=== PATIENT | male | born 1975 | race Caucasian/White ===

== ENCOUNTER 2016-06-01 16:49 | Emergency (ER) | payer OTHER ==
[~2016-06-01] VITALS: Ht 172.7 cm; Wt 158.8 kg
[~2016-06-01 16:49] MED LIST: AMOXIL 875 MG875 MG PO; BENZONATATE200 MG PO; CHERATUSSIN AC120 ML PO; HYDROCODONE/ACE1 TA1 PO; MEDROL DOSEPAK1 PAC PO; MOTRIN800 MG PO; PROVENTIL0.09 MG/A1 INH; TESSALON PERLE100 MG PO
--- NOTE | 2016-06-01 17:16 | ED UPPER/LOWER EXTREMITY COMPL ---
History of Present Illness General Chief Complaint: Foot or Ankle Injury Stated Complaint: INJURY TO R ANKLE Source: patient Exam Limitations: no limitations Vital Signs & Intake/Output Vital Signs & Intake/Output Vital Signs Date Time Temp Pulse Resp B/P Pulse O2 O2 Flow FiO2 Ox Delivery Rate 06/01 1847 96.3 78 18 117/62 100 Room Air 06/01 1731 97 Room Air 06/01 1657 98.5 93 20 118/82 94 Room Air ED Intake and Output 06/02 0000 06/01 1200 Intake Total Output Total Balance Patient 350 lb Weight Allergies Coded Allergies: NO KNOWN ALLERGIES (NO) (06/01/16) Reconcile Medications No Known Home Medications Triage Note: TRIAGE: PT TO ER C/C R ANKLE PAIN S/P FALL APPROX 1.5 HRS CLOSER ON. STATES HE SLIPPED ON SOME "SLIMEY STEPS ON THE JOB AND WENT TUMBLING." STATES "I'M A LITTLE BANGED UP EVERYWHERE ELSE BUT IT'S REALLY MY ANKLE." REFUSES OFFERED TYLENOL AT TRIAGE. Triage Nurses Notes Reviewed? yes Onset: Abrupt Duration: constant Timing: single episode today Severity: moderate Severity Numbers: 5 Method of Injury: fall HPI: Patient is a 40-year-old male with a past medical history of right ankle fracture and hardware placement states that today while walking down wet stairs he fell and twisted his right ankle resulting in acute onset of 5/10 localized right ankle pain. Patient did not take any medications for symptoms. Denies any foot pain or knee pain or head strike. The ambulation makes worse This event occurred at work (TEREZA PEDRO) Past History Travel History Traveled to [place] past 21 day No Medical History Any Pertinent Medical History? see below for history Neurological: NONE EENT: tonsil infections Cardiovascular: NONE Respiratory: NONE Gastrointestinal: NONE Hepatic: NONE Renal: NONE Musculoskeletal: NONE Psychiatric: NONE Endocrine: NONE Blood Disorders: NONE Cancer(s): NONE SENIOR CONTROLLER/Reproductive: NONE Tetanus Vaccine: 08/10/11 Surgical History Surgical History: non-contributory Psychosocial History What is your primary language Cypriot Tobacco Use: Quit >30 days ago ETOH Use: occasional use Illicit Drug Use: denies illicit drug use Family History Hx Contributory? No (TEREZA PEDRO) Review of Systems Review of Systems Constitutional: Reports: no symptoms. EENTM: Reports: no symptoms. Respiratory: Reports: no symptoms. Cardiovascular: Reports: no symptoms. Gastrointestinal/Abdominal: Reports: no symptoms. Genitourinary: Reports: no symptoms. Musculoskeletal: Reports: see HPI, joint pain. Skin: Reports: no symptoms. Neurological/Psychological: Reports: no symptoms. Hematologic/Endocrine: Reports: no symptoms. Immunological: Reports: no symptoms. All Other Systems: Reviewed and Negative (TEREZA PEDRO) Physical Exam Physical Exam General Appearance: no apparent distress, alert, obese Neurologic/Tendon: normal sensation, normal motor functions, normal tendon functions, responds to pain, no evidence tendon injury, no pulse deficit Skin: intact, normal color, warm/dry Comments: HEENT: Atraumatic, extraocular motion intact Neck: Supple, no lymphadenopathy Back: Nontender Respiratory: No respiratory distress Extremities: Right knee normal inspection nontender full active range of motion Right ankle mild lateral malleoli swelling and point tenderness noted, mild decreased active range of motion noted Right foot normal inspection pedal pulse +2 no swelling Right lower extremity dermatomes intact Neuro: Alert and oriented x3 Psych: Mood affect normal, normal memory normal judgment. (TEREZA PEDRO) Progress Differential Diagnosis: arterial insufficiency, compartment syndrome, contusion, dislocation, DVT, fracture, gout, septic arthritis, sprain, tendon injury Plan of Care: Orders Procedure Date/time Status XRY-FOOT COMPLETE, RIGHT 06/01 1722 Active XRY-ANKLE 3 OR MORE VIEWS R 06/01 1722 Active X-rays were unremarkable for osseous injury. Patient was offered Aircast stirrup and crutches and he declines Jesus wrap was placed to left ankle. Post neurovascular was intact. 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 (TEREZA PEDRO) Diagnostic Imaging: Viewed by Me: Radiology Read. Radiology Impression: no acute abnormality, no fracture Comments: PATIENT: MEERA MACHADO PRESENT AGE: 40 PATIENT ACCOUNT NO: [id number] : 74 LOCATION: [facility] ORDERING PHYSICIAN: TEREZA FREGOSO SERVICE DATE: 06/01/16 EXAM TYPE: RAD - XRY-ANKLE 3 OR MORE VIEWS R; XRY-FOOT COMPLETE, R EXAMINATION: 1. RIGHT FOOT. 2. RIGHT ANKLE. CLINICAL INFORMATION: Fall. Pain. COMPARISON: None. TECHNIQUE: 1. Right foot. 3 views 2. Right ankle. 3 views. FINDINGS: 1. Right foot. No fracture. No dislocation. No acute abnormality. There is a small plantar calcaneal spur. There is also a small spur at the insertion of the Achilles tendon at the posterior calcaneus. 2. Right ankle. No fracture. No dislocation. Ankle mortise is congruent. Old posttraumatic changes of the fibula with orthopedic plate and screw and bone spur /exostosis from remodeling at the interosseous space of the distal fibula. There are also small marginal spurs of the tibia at the ankle joint anteriorly and posteriorly. IMPRESSION: 1. Right foot. No acute abnormality. 2. Right ankle. No acute abnormality. (TEREZA PEDRO) Departure Departure Disposition: HOME OR SELF CARE Condition: Stable Clinical Impression Primary Impression: Right ankle sprain Referrals: [facility] (PCP/Family) ELLIS FOSTER,IRASEMA He Additional Instructions: As discussed begin icing the area directly 20 minutes every 2 hours. Begin using the Jesus wrap for swelling. Begin ydac-vin-[id number] ibuprofen for pain and inflammation. If no better in one week follow-up with orthopedic DR. CORRAL or your established orthopedic doctor for further evaluation treatment. If symptoms worsen return to emergency room. Begin using your crutches at home and seek walk without pain. Departure Forms: Customer Survey General Discharge Information Prescriptions: Current Visit Scripts No Known Home Medications (TEREZA PEDRO) PA/RESEARCH ADMINISTRATOR Co-Sign Statement Statement: ED Attending supervision documentation- [] I saw and evaluated the patient. I have also reviewed all the pertinent lab results and diagnostic results. I agree with the findings and the plan of care as documented in the PA's/RESEARCH ADMINISTRATOR's documentation. [X] I have reviewed the ED Record and agree with the PA's/RESEARCH ADMINISTRATOR's documentation. [] Additions or exceptions (if any) to the PAs/RESEARCH ADMINISTRATOR's note and plan are summarized below: [] (LISA FOSTER,EMILY)
--- NOTE | 2016-06-01 18:25 | RADIOLOGY REPORT ---
EXAMINATION: 1. RIGHT FOOT. 2. RIGHT ANKLE. CLINICAL INFORMATION: Fall. Pain. COMPARISON: None. TECHNIQUE: 1. Right foot. 3 views 2. Right ankle. 3 views. FINDINGS: 1. Right foot. No fracture. No dislocation. No acute abnormality. There is a small plantar calcaneal spur. There is also a small spur at the insertion of the Achilles tendon at the posterior calcaneus. 2. Right ankle. No fracture. No dislocation. Ankle mortise is congruent. Old posttraumatic changes of the fibula with orthopedic plate and screw and bone spur /exostosis from remodeling at the interosseous space of the distal fibula. There are also small marginal spurs of the tibia at the ankle joint anteriorly and posteriorly. IMPRESSION: 1. Right foot. No acute abnormality. 2. Right ankle. No acute abnormality.
[2016-06-01 18:47] VITALS: BP 117/62
== END 2016-06-01 18:49 ==
LOC: ERH 16:49
DX: S93.401A Sprain of unspecified ligament of right ankle, initial encounter (principal); W10.9XXA Fall (on) (from) unspecified stairs and steps, initial encounter; Y93.01 Activity, walking, marching and hiking; Y92.9 Unspecified place or not applicable
CPT/HCPCS: 73610-RT; 73630-RT

== ENCOUNTER 2016-08-05 08:13 | Emergency (ER) | payer OTHER ==
[~2016-08-05] VITALS: Ht 172.7 cm; Wt 154.2 kg
[2016-08-05 08:15] VITALS: BP 146/103
[2016-08-05] MEDS ORDERED: DICLOFENAC SODI75 M2 PO (09:06)
--- NOTE | 2016-08-05 09:06 | ED UPPER/LOWER EXTREMITY COMPL ---
History of Present Illness General Chief Complaint: Upper Extremity Injury Stated Complaint: RT ARM PAIN Source: patient Exam Limitations: no limitations Vital Signs & Intake/Output Vital Signs & Intake/Output Vital Signs Date Time Temp Pulse Resp B/P B/P Pulse O2 O2 Flow FiO2 Mean Ox Delivery Rate 08/05 0815 97.0 74 15 146/103 96 Room Air Room Air Allergies Coded Allergies: NO KNOWN ALLERGIES (NO) (06/01/16) Reconcile Medications Diclofenac Sodium 75 MG TABLET. 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 05/07 PAIN. DENIES PAIN MEDS IN TRIAGE. Triage Nurses Notes Reviewed? 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 Patient states that during training exercises yesterday he felt a sudden onset of the burning pain in the right forearm with subsequent swelling. The pain is a sharp stabbing pain that gets worse with certain movements (7-8 out of 10). The pain has been constant since onset and fluctuates in intensity. He applied ice overnight. He denies any distal paresthesias out of the ordinary (he states his hands typically feel numb as he works as a beltre). Past History Travel History Traveled to [place] past 21 day No Medical History Any Pertinent Medical History? see below for history Neurological: NONE EENT: tonsil infections Cardiovascular: NONE Respiratory: NONE Gastrointestinal: NONE Hepatic: NONE Renal: NONE Musculoskeletal: NONE Psychiatric: NONE Endocrine: NONE Blood Disorders: NONE Cancer(s): NONE SOLID WASTE COLLECTION WORKER/Reproductive: NONE Tetanus Vaccine: 08/10/11 Surgical History Surgical History: non-contributory Psychosocial History What is your primary language Frisian Tobacco Use: Current Not Daily ETOH Use: occasional use Illicit Drug Use: marijuana Family History Hx Contributory? No Review of Systems Review of Systems Constitutional: Reports: no symptoms. EENTM: Reports: no symptoms. Respiratory: Reports: no symptoms. Cardiovascular: Reports: no symptoms. Gastrointestinal/Abdominal: Reports: no symptoms. Genitourinary: Reports: no symptoms. Musculoskeletal: Reports: see HPI. Skin: Reports: no symptoms. Neurological/Psychological: Reports: no symptoms. Hematologic/Endocrine: Reports: no symptoms. Immunological: Reports: no symptoms. All Other Systems: Reviewed and Negative Physical Exam Physical Exam General Appearance: SEE BELOW Comments: Gen.: Well-nourished, well-developed, no acute respiratory distress. Head: Normocephalic, atraumatic. Eyes: Normal inspection bilaterally Ears: Normal inspection bilaterally Nose: Normal inspection, nasal cannula in place Throat/mouth : Moist mucosa Neck: Supple, full range of motion, no goiter Heart: Regular rate and rhythm Lungs: Quiet respirations Back: Normal range of motion Extremities: Right forearm: Tenderness over the insertion of the right brachial radialis with mild soft tissue swelling. The elbow is nontender with full range of motion. There is no tenderness of the right wrist or hand. Sensation is intact to the right hand. Radial pulse is normal. There is no ecchymoses on exam. Neurologic: Cranial nerves grossly intact, speech is clear Skin: warm and dry Psychiatric: Calm, cooperative, no apparent delusions or hallucinations Diagram Right Arm Back 1) AREA OF TENDERNESS AND PAIN Progress Differential Diagnosis: fracture, sprain Plan of Care: see d/c instructions Comments: Tye declined an arm sling or work note. Departure Departure Disposition: HOME OR SELF CARE Condition: Stable Clinical Impression Primary Impression: Sprain of right forearm Qualifiers: Encounter type: initial encounter Qualified Code: S63.501A - Unspecified sprain of right wrist, initial encounter Referrals: PATIENT HAS NO PRIMARY CARE DR (PCP/Family) Additional Instructions: Voltaren as prescribed for pain. Cool compresses over the next 24-48 hours. Consider compression wrap to help control swelling. If there is a Workmen's Compensation policy and [place] please follow up as designated. Otherwise follow-up with your primary care physician in 7-10 days if not improving. Return if any concerns or sudden worsening. Departure Forms: Customer Survey Employee Industrial Accident General Discharge Information Prescriptions: Current Visit Scripts Diclofenac Sodium 1 TAB PO BID PRN PAIN #14 TAB
== END 2016-08-05 09:17 ==
LOC: ERH 08:13
DX: S63.501A Unspecified sprain of right wrist, initial encounter (principal); X58.XXXA Exposure to other specified factors, initial encounter; Y93.89 Activity, other specified; Y92.9 Unspecified place or not applicable